=== PATIENT | female | born 1995 | race Two or more races ===

== ENCOUNTER 2018-09-06 14:36 | Emergency (ER) | payer OTHER, BC ==
[2018-09-06 14:41] VITALS: BP 134/87
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
== END 2018-09-06 16:14 | disposition home or self-care (01) ==
LOC: ER 14:36
DX: M54.2 Cervicalgia (principal); M54.6 Pain in thoracic spine; F17.210 Nicotine dependence, cigarettes, uncomplicated; V89.2XXA Person injured in unspecified motor-vehicle accident, traffic, initial encounter
CPT/HCPCS: 72070; 99283; 99406